=== PATIENT | female | born 1985 | race Caucasian/White ===

== ENCOUNTER 2017-01-04 11:16 | Day surgery (SDC) | payer OTHER ==
[2016-12-13 14:27] VITALS: BMI 23.3
[2017-01-04] MEDS ORDERED: DESMOPRESSIN ACETATE 4 MCG/ML AMP IVPB ONE (13:30)
[2017-01-04] MEDS ORDERED: MIDAZOLAM HCL 2 MG/2 ML SINGLE DOSE VIAL ONE (13:55)
[2017-01-04] MEDS ORDERED: LIDOCAINE HCL 2% (20ML MULTI-DOSE VIAL) NR ONE (14:10)
[2017-01-04] MEDS ORDERED: oxyCODONE HCL 5 MG TABLET PO PRN ×2 (14:15)
[2017-01-04] MEDS ORDERED: ONDANSETRON 4 MG/2 ML VIAL IVPUSH PRN (14:15)
[2017-01-04] MEDS ORDERED: LACTATED RINGERS SOLUTION 1,000 ML IV SCH (14:15)
[2017-01-04] MEDS ORDERED: LIDOCAINE HCL 2% (50ML VIAL) INF ONE (14:25)
[2017-01-04] MEDS ORDERED: DESMOPRESSIN ACETATE 4 MCG/ML AMP IVPB SCH (14:45)
[2017-01-04 15:43] VITALS: TEMP 97.8
[2017-01-04 15:45] VITALS: BP 103/67; PULSE 68
--- NOTE | 2017-01-07 07:46 | OP ---
DATE OF OPERATION: 01/04/2017 PREOPERATIVE DIAGNOSIS: Left de Quervain tenosynovitis. POSTOPERATIVE DIAGNOSIS: Left de Quervain tenosynovitis. OPERATIVE PROCEDURE: Left de Quervain release. SURGEON: Ten Jeff MD ANESTHESIA: Local with sedation. COMPLICATIONS: None. ESTIMATED BLOOD LOSS: Minimal. INDICATIONS FOR PROCEDURE: The patient is a 31-year-old female indicated for operative treatment. Risks, benefits, and alternatives were discussed with the patient at length. Proper informed consent was obtained. DESCRIPTION OF PROCEDURE: After proper identification of patient and correct operative site, the patient was brought to the operating room and placed supine on the operative table, prominences well padded. Sedation was given by the anesthesiologist. Local anesthesia was given with 2% lidocaine. The left upper extremity was prepped and draped in the usual sterile fashion. A well-padded tourniquet was placed with a sterile prep. Esmarch bandage used to exsanguinate the left upper extremity. Tourniquet was inflated to 250 mmHg. Transverse incision was made over the 1st dorsal compartment. Incision was taken sharply through the skin with blunt and sharp dissection through the subcutaneous tissues. First dorsal compartment was found to be quite thickened and bulging and was released on its dorsal aspect. A subcompartment was also noted and was also released. Synovitis was debrided. Wrist was flexed and extended, and no subluxation of the tendons was noted. The wound was irrigated with saline and repaired with a 4-0 Monocryl suture. Steri-Strips and sterile dressings were applied. The patient was reversed from anesthesia and brought to the recovery room in stable condition. She tolerated the procedure well. TEN JEFF M.D. [id number]
== END 2017-01-04 16:07 | disposition home or self-care (01) ==
LOC: FASU 11:16
PROVIDERS: ATTEND Orthopaedic Surgery Hand Surgery
PROC: 0L860ZZ Division of Left Lower Arm and Wrist Tendon, Open Approach (ICD-10-PCS; principal; 2017-01-04 14:19)
DX: M65.4 Radial styloid tenosynovitis [de Quervain] (principal)
CPT/HCPCS: 84703